=== PATIENT | male | born 1980 | race African-American/Black ===

== ENCOUNTER 2021-03-05 13:34 | Emergency (ER) | payer OTHER ==
[~2021-03-05] VITALS: Ht 180.3 cm; Wt 83.0 kg
[2021-03-05] MEDS ORDERED: NEURONTIN100 MG PO (14:06)
[2021-03-05] MEDS ORDERED: MUPIROCIN1 GM TOP (15:07)
[2021-03-05] MEDS ORDERED: CEPHALEXIN500 MG PO (15:07)
[2021-03-05 15:31] VITALS: BP 140/70
== END 2021-03-05 15:31 | disposition home or self-care (01) ==
LOC: ER 13:34
DX: S70.361A Insect bite (nonvenomous), right thigh, initial encounter (principal); L08.9 Local infection of the skin and subcutaneous tissue, unspecified; Z79.899 Other long term (current) drug therapy; W57.XXXA Bitten or stung by nonvenomous insect and other nonvenomous arthropods, initial encounter; Y92.89 Other specified places as the place of occurrence of the external cause; Y93.89 Activity, other specified; Y99.8 Other external cause status